=== PATIENT | female | born 1970 | race Caucasian/White ===

== ENCOUNTER 2021-09-28 17:20 | Emergency (ER) | payer BC, SELFPAY ==
[~2021-09-28] VITALS: Ht 165.1 cm; Wt 81.2 kg
--- NOTE | 2021-09-28 17:59 | NUR ---
Patient to ER bed 01 to gown for evaluation. Side rails up.
[2021-09-28 18:00] VITALS: BP_SYST 141
--- NOTE | 2021-09-28 18:10 | NUR ---
INITIAL CONTACT WITH PATIENT, A/OX 4 , AMBULATORY FROM HOME, C/O VISION LOST ON RIGHT EYE. PT STATES " STARTED FROM SMALL SPOT AND TODAY I FEEL LIKE SOMETHING IS COVERING MY EYE". MD GRIFFITH SEEN PT, US ORDERED. PT STABLE, VSS
[2021-09-28 19:04] LABS: BASOPHILS % (AUTO) 0.3 % (0.0-2.0); EOSINOPHILS # (AUTO) 0.1 K/uL (0.0-0.4); EOSINOPHILS % (AUTO) 1.2 % (0.0-4.0); HEMOGLOBIN 8.2 g/dL (12.0-16.0); LYMPHOCYTES # (AUTO) 1.3 K/uL (1.0-5.5); LYMPHOCYTES % (AUTO) 18.2 % (20.5-51.5); MEAN CORPUSCULAR HEMOGLOBIN 21 pg (27-31); MEAN CORPUSCULAR HGB CONC 32 % (32-36); MEAN CORPUSCULAR VOLUME 66 fL (79.0-98.0); MONOCYTES # (AUTO) 0.5 K/uL (0.0-1.0); MONOCYTES % (AUTO) 6.9 % (1.7-9.3); NEUTROPHILS # (AUTO) 5.4 K/uL (1.8-7.7); NEUTROPHILS % (AUTO) 73.4 % (40.0-70.0); PLATELET COUNT (AUTO) 379 K/uL (130-430); RED BLOOD CELL COUNT(AUTO) 3.92 MIL/uL (4.2-6.2); RED CELL DISTRIBUTION WIDTH 19.1 % (9.0-15.0); WHITE BLOOD COUNT (AUTO) 7.3 K/uL (4.8-10.8)
[2021-09-28 19:21] LABS: CALCIUM 7.7 mg/dL (8.4-11.0); CREATININE 0.49 mg/dL (0.55-1.30); POTASSIUM 4.5 mmol/L (3.5-5.1)
--- NOTE | 2021-09-28 19:34 | NUR ---
report given to mahogany Cadena
--- NOTE | 2021-09-28 19:58 | NUR ---
Assumed care report given pt pending dispo. Pt in no distress continue to monitor
--- NOTE | 2021-09-28 20:21 | NUR ---
SHEA SILVESTRE SWAB COMPLETE, PENDING RESULTS.
--- NOTE | 2021-09-28 22:11 | NUR ---
Pt alert vss , no complaints of pain report to davie . Ems on site pt to accepting facility
[2021-09-28 22:12] VITALS: BP_SYST 144
== END 2021-09-28 22:20 | disposition short-term general hospital (02) ==
LOC: SED 17:20
DX: H33.21 Serous retinal detachment, right eye (principal); I10 Essential (primary) hypertension; Z20.822 Contact with and (suspected) exposure to COVID-19
CPT/HCPCS: 36415; 80048; 85025; 99285